=== PATIENT | male | born 2005 | race Caucasian/White ===

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

== ENCOUNTER 2024-04-09 17:57 | Emergency (ER) | payer OTHER, SELFPAY ==
[2024-04-09 18:44] VITALS: BP 157/76; PULSE 79; RESP 16; TEMP 36.9; O2SAT 99; BMI 30.1
--- NOTE | 2024-04-09 18:54 | EXP.UTC ---
Discharge Plan Disposition Patient Disposition: Home, Self-Care Condition: Good Prescriptions Prescriptions: New doxycycline hyclate 100 mg capsule 100 mg PO BID 7 Days Qty: 14 0RF No Action mupirocin 22 GM ointment 1 applicatio TP TID 7 Days Qty: 1 0RF amoxicillin-pot clavulanate 1 EACH tablet 500 mg PO TID Qty: 30 0RF prednisone 10 MG tablet 10 mg PO BID 3 Days Qty: 6 0RF ybivrqnhnwcazax-mvutkdpmk-UY 118 ML syrup 5 ml PO Q6HP PRN (Reason: Cough) Qty: 240 0RF amoxicillin-pot clavulanate 1 EACH tablet 1 tab PO Q12H 10 Days Qty: 20 0RF Referrals Follow up/Referrals: Provider,Referral, MD [Primary Care Provider] - See instructions Activity Restrictions/Add. Instructions Additional Instructions/Restrictions: Soak foot in warm water and epson salt Take oral antibiotics as prescribed Watch area for signs of infection including but not limited to swelling, drainage, redness, streaking if seen follow up immediately Return if needed Straight to ER if any life threatening symptoms Clinical Impressions Clinical Impression: Puncture wound Instructions Patient Instructions: Doxycycline, DI for Puncture Wound Print Language Print Language: Telugu Discharge ED Provider: Marry Romero [facility] HPI General Stated complaint: AO 04/07, nail in right foot Mode of Arrival: Ambulatory Source of Information: Patient Time Seen by Provider: 04/09/24 18:54 Description of Symptoms (Recalled from Triage Doc. by RN): STEPPED ON A NAIL, RIGHT FOOT HEENT Symptoms (Recalled from RN notes): No Resp Symptoms (Recalled from RN notes): No Skin Symptoms (Recalled from RN notes): No MS Symptoms (Recalled from RN notes): No Functional Status (Recalled from RN notes): WNL History of Present Illness Provider Complaint: Patient states on Tuesday he stepped on nail and it went through his boot into the bottom of his right foot States he has been cleaning it daily but it is sore and he is unsure of his last tetanus shot Related Data Previous Rx's ?Medication ?Instructions ?Recorded amoxicillin 500 mg-potassium 500 mg PO TID #30 tabs 06/30/20 clavulanate 125 mg tablet mupirocin 2 % topical ointment 1 applicatio TP TID 7 days #1 tube 06/30/20 amoxicillin 875 mg-potassium 1 tab PO Q12H 10 days #20 tabs 05/28/21 clavulanate 125 mg tablet repmfvrkibficat-fzjitthtpfwndxw-LF 5 ml PO Q6HP PRN Cough #240 mL 05/28/21 2 mg-30 mg-10 mg/5 mL oral syrup prednisone 10 mg tablet 10 mg PO BID 3 days #6 tabs 05/28/21 doxycycline hyclate 100 mg capsule 100 mg PO BID 7 days #14 caps 04/09/24 Allergies Allergy/AdvReac Type Severity Reaction Status Date / Time cephalexin [From KEFLEX] Allergy Intermediate S-DIFF. Verified 07/07/20 14:13 BREATHING Worker's Comp Is this a Worker's Comp case?: No [facility] Disclaimer: The information contained in this section may have been updated after the patient was seen, as this information can be updated by other users. Social History Smoking Status: Unknown if ever smoked alcohol intake: never current occupational status: student Travel in the last 8 weeks: None ROS Obtained: Yes All systems reviewed & no additional complaints except as documented and Yes Systems reviewed as appropriate & no additional complaints except as documented Constitutional Constitutional: Reports system reviewed and no additional complaints, except as documented and Reports as per HPI ENT Ears, Nose, Mouth, and Throat: Reports system reviewed and no additional complaints, except as documented and Reports as per HPI Cardiovascular Cardiovascular: Reports system reviewed and no additional complaints, except as documented and Reports as per HPI Respiratory Respiratory: Reports system reviewed and no additional complaints, except as documented and Reports as per HPI Integumentary/Breasts Skin/Breast: Reports system reviewed and no additional complaints, except as documented, Reports as per HPI and Reports other (puncture wound to right foot) Physical Exam General General appearance: alert and in no apparent distress ENT ENT exam: Present normal exam, normal oropharynx, mucous membranes moist and TM's normal bilaterally Respiratory Respiratory exam: Present normal lung sounds bilaterally; Absent respiratory distress or wheezes Cardiovascular Cardiovascular exam: Present regular rate, normal rhythm and normal heart sounds Expanded Lower Extremity Exam Right: Bottom foot image: 1. puncture wound noted with mild redness Neurological Exam Neurological exam: Present alert, oriented X3 and normal gait Medical Decision Making Medical Records Screening: Per USPSTF and CDC recommendations, given the prevalence of disease in our region, it is our hospital?s policy to screen for HIV and viral Hepatitis for all patients aged 18 and over and those with ongoing risk factors. [place] Inquiry Pt receiving controlled substance: No [place] was queried for this patient: No Vital Signs: 04/09/24 18:44 Temperature 98.5 F Temperature Source Oral Pulse Rate [Left Brachial] 79 Respiratory Rate 16 Blood Pressure [Left Arm] 157/76 H Blood Pressure Mean [Left Arm] 103 02 Sat by Pulse Oximetry 99
[2024-04-09] MEDS: TET/DIPHTH/PERT-ADULT 0.5ML SYRINGE 0.5 ML IM (19:05)
[2024-04-09 19:15] VITALS: BP 157/76; PULSE 79; RESP 16; TEMP 36.9
== END 2024-04-09 19:17 | disposition home or self-care (01) ==
PROVIDERS: Emergency Provider Nurse Practitioner
DX: S91.331A Puncture wound without foreign body, right foot, initial encounter (principal); W45.0XXA Nail entering through skin, initial encounter; Z23 Encounter for immunization
CPT/HCPCS: 90471; 90715; 99212; 99214; G0463